=== PATIENT | male | born 1970 | race Caucasian/White ===

== ENCOUNTER 2016-11-18 20:07 | Emergency (ER) | payer BC ==
[2016-11-18 20:30] VITALS: BP 126/73
--- NOTE | 2016-11-18 20:46 | UC ---
Throat Pain/Nasal Raffy HPI - HPI Summary HPI Summary: complaint of nasal congestion and cough that started approx7 days ago sore throat fever and chills sinus pressure that is getting worse- pain in face and forehead cough with purulent sputum body feels achy sometimes taking some dayquil without much relief - History of Current Complaint Chief Complaint: UCGeneralIllness Stated Complaint: COUGH/HEADACHE Time Seen by Provider: 11/18/16 20:38 Hx Obtained From: Patient - Allergies/Home Medications Allergies/Adverse Reactions: Allergies Allergy/AdvReac Type Severity Reaction Status Date / Time No Known Allergies Allergy Verified 11/18/16 20:29 Home Medications: Home Medications Benzonatate CAP* [Tessalon CAP*] 100 mg PO TID 11/18/16 [History Confirmed 11/18] PMH/Surg Hx/FS Hx/Imm Hx Previously Healthy: Yes - Surgical History Surgical History: Yes Surgery Procedure, Year, and Place: T&A, 2007, [place] - Family History Known Family History: Positive: Cardiac Disease, Hypertension Negative: Diabetes - Social History Occupation: Employed Full-time Lives: With Family Alcohol Use: Occasionally Substance Use Type: None Smoking Status (MU): Never Smoked Tobacco - Immunization History Most Recent Influenza Vaccination: not this season Review of Systems Constitutional: Fever, Chills Skin: Negative Eyes: Negative ENT: Sore Throat, Nasal Discharge Respiratory: Cough Cardiovascular: Negative Gastrointestinal: Negative Genitourinary: Negative Motor: Negative Neurovascular: Negative Musculoskeletal: Negative Neurological: Headache Psychological: Negative All Other Systems Reviewed And Are Negative: Yes Physical Exam Triage Information Reviewed: Yes Appearance: No Pain Distress, Well-Nourished Vital Signs: Initial Vital Signs Temp 99.6 F 11/18/16 20:25 Pulse 79 11/18/16 20:25 Resp 16 11/18/16 20:25 BP 126/73 11/18/16 20:25 Pulse Ox 99 11/18/16 20:25 Vital Signs Reviewed: Yes Eyes: Positive: Conjunctiva Clear ENT: Positive: Pharyngeal erythema, Nasal congestion, Nasal drainage, TM bulging , Other: - frontal and maxillary sinus tenderness. Negative: Tonsillar swelling , Tonsillar exudate Neck: Positive: No Lymphadenopathy Respiratory: Positive: Lungs clear, Normal breath sounds, No respiratory distress, No accessory muscle use Cardiovascular: Positive: RRR, No Murmur Abdomen Description: Positive: Nontender, Soft Bowel Sounds: Positive: Present Musculoskeletal: Positive: No Edema Neurological: Positive: Alert Psychological Exam: Normal Skin Exam: Normal Throat Pain/Nasal Course/Dx - Differential Dx/Diagnosis Differential Diagnosis/HQI/PQRI: Pharyngitis, Sinusitis, URI Provider Diagnoses: sinusitis Discharge - Discharge Plan Condition: Stable Disposition: HOME Prescriptions: Amoxicillin/Clavulanate TAB* [Augmentin TAB 875*] 875 mg PO BID #20 tab Benzonatate CAP* [Tessalon CAP*] 100 mg PO TID PRN #30 cap PRN Reason: Cough Patient Education Materials: Sinusitis (ED) Referrals: Todd Morrissey DO [Primary Care Provider] - Additional Instructions: SINUSITIS What is Sinusitis? Sinusitis is inflammation or infection of the lining of the sinuses behind the bones in your cheeks or forehead. Sinusitis may occur following a common cold, flu, or other infection; allergies; a tooth infection that spreads to the sinuses; swimming in contaminated water; pressure changes in airplanes at high altitudes; violent sneezing or nose blowing or smoking or breathing other peoples smoke. Symptoms Might Include: Nasal Congestion Sneezing Watery eyes, eye irritation, or eye itching Headaches Pressure in the cheeks Wheezing Trouble smelling Sore throat and coughing may occur Treatment Recommendations: Take medicines as prescribed until completely gone. Drink plenty of fluids. Use saline nose spray to thin the mucous and help the sinuses drain. Use a vaporizer or humidifier. Apply warm compresses to the face or forehead several times a day for 10 to 20 minutes. Call Your Doctor or Return Here IF: Your pain increases during treatment. You develop a high temperature. You develop unusual swelling around the eyes. You have difficulty with your vision. You develop a severe headache, earache, or toothache. You develop increased fever or fever that does not respond to medication such as Tylenol?. You have difficulty breathing or catching your breath. You begin to have any other new symptoms that worry you.
[2016-11-18] MEDS ORDERED: Amoxicillin/Clavulanate TAB* 875 MG PO ONE ×2 (20:47→21:02)
[2016-11-18] MEDS ORDERED: Benzonatate CAP* 100 MG PO ONE (20:48)
== END 2016-11-18 21:10 | disposition home or self-care (01) ==
LOC: UCCORT 20:07
DX: J32.9 Chronic sinusitis, unspecified (principal)
CPT/HCPCS: 99212; A9270-GY; G0463

== ENCOUNTER 2018-02-15 10:57 | Emergency (ER) | payer BC, OTHER ==
[2018-02-15 11:24] VITALS: BP 125/78
--- NOTE | 2018-02-15 12:07 | UC ---
Dizzy HPI HPI Summary: Pt c/o dizziness, dull headache X 7 days. Pt also reports that he has lost 60+ pounds over last 6 weeks, unintentional. Pt states that [facility] girlfriend ended relationship in mid December, began losing weight, insomnia, and now c/o dizziness and "foggy brain". - History Of Current Complaint Chief Complaint: UCGeneralIllness Stated Complaint: DIZZY *1WEEK Time Seen by Provider: 02/15/18 11:46 Hx Obtained From: Patient Onset/Duration: Sudden Onset, Lasting Weeks, Still Present, Worse Since - last 6 days. Timing: Constant Severity Initially: Mild Severity Currently: Mild Pain Intensity: 3 Character: Dizzy Aggravating Factor(s): Nothing Alleviating Factor(s): Nothing Associated Signs And Symptoms: Positive: Decreased Oral Intake, Change In Diet - Risk Factors Cardiac Risk Factors: Negative CVA Risk Factor: Negative - Allergies/Home Medications Allergies/Adverse Reactions: Allergies Allergy/AdvReac Type Severity Reaction Status Date / Time No Known Allergies Allergy Verified 02/15/18 11:15 Home Medications: Home Medications NK [No Home Medications Reported] 02/15/18 [History Confirmed 02/15/18] PMH/Surg Hx/FS Hx/Imm Hx Previously Healthy: Yes - Surgical History Surgical History: Yes Surgery Procedure, Year, and Place: T&A, 2007, [place] - Family History Known Family History: Positive: Cardiac Disease, Hypertension Negative: Diabetes - Social History Occupation: Employed Full-time Lives: With Family Alcohol Use: Occasionally Substance Use Type: None Smoking Status (MU): Never Smoked Tobacco Have You Smoked in the Last Year: No - Immunization History Most Recent Influenza Vaccination: not this season Review of Systems Constitutional: Negative Skin: Negative Eyes: Other - change in vision, ENT: Negative Respiratory: Negative Cardiovascular: Negative Gastrointestinal: Negative Genitourinary: Negative Motor: Negative Neurovascular: Negative Musculoskeletal: Negative Neurological: Negative Psychological: Negative Is Patient Immunocompromised?: No All Other Systems Reviewed And Are Negative: Yes Physical Exam Triage Information Reviewed: Yes Appearance: Well-Appearing Vital Signs: Initial Vital Signs Temp 98 F 02/15/18 11:11 Pulse 64 02/15/18 11:11 Resp 16 02/15/18 11:11 BP 125/78 02/15/18 11:11 Pulse Ox 99 02/15/18 11:11 Vital Signs Reviewed: Yes Eye Exam: Normal ENT Exam: Other ENT: Positive: TM bulging - bilateral Dental Exam: Normal Neck exam: Normal Respiratory Exam: Normal Cardiovascular Exam: Normal Abdominal Exam: Normal Musculoskeletal Exam: Normal Neurological Exam: Normal Psychological Exam: Normal Skin Exam: Normal Dizzy Course/Dx - Differential Dx/Diagnosis Differential Diagnosis/HQI/PQRI: Other Provider Diagnoses: dizziness. Mood disorder. unintentional weight loss Discharge - Sign-Out/Discharge Documenting (check all that apply): Discharge/Admit/Transfer - Discharge Plan Condition: Stable Disposition: HOME Patient Education Materials: Mood Disorders (ED), Dizziness (ED) Referrals: No Primary Care Phys,NOPCP [Primary Care Provider] - [facility] [place] [facility] [Outside] - As Soon As Possible Additional Instructions: Please establish care with a PCP as soon as possible. If your symptoms worsen please seek care at the closest emergency room. - Billing Disposition and Condition Condition: STABLE Disposition: HOME
[2018-02-15 18:34] LABS: ABS Basophils 0 10^3/ul (0-0.2); ABS Eosinophils 0.1 10^3/ul (0-0.6); ABS Lymphocytes 1.6 10^3/ul (1.0-4.8); ABS Monocytes 0.9 10^3/ul (0-0.8); ABS Neutrophils 7.2 10^3/ul (1.5-7.7); ABS Nucleated RBC 0 10^3/ul; Eosinophil % 0.9 % (0-6); Hematocrit 47 % (42-52); Hemoglobin 15.8 g/dl (14.0-18.0); Mean Corpuscular HGB Conc 34 g/dl (31-36); Mean Corpuscular Hemoglobin 30 pg (27-31); Mean Corpuscular Volume 89 fL (80-94); Mean Platelet Volume 8.2 um3 (7.4-10.4); Nucleated Red Blood Cells % 0; Platelet Count 180 10^3/ul (150-450); Red Blood Count 5.27 10^6/ul (4.0-5.4); Red Cell Distribution Width 13 % (10.5-15); White Blood Count 9.7 10^3/ul (3.5-10.8)
[2018-02-15 18:45] LABS: EGFR Non-African American 112.9 (>60)
== END 2018-02-15 12:16 | disposition home or self-care (01) ==
LOC: UCCORT 10:57
DX: R42 Dizziness and giddiness (principal); F39 Unspecified mood [affective] disorder; R63.4 Abnormal weight loss
CPT/HCPCS: 36415; 80053; 84439; 84443; 84481; 85025; 99212; G0463

== ENCOUNTER 2018-09-06 19:30 | Emergency (ER) | payer BC, MEDICAID, OTHER ==
[2018-09-06 20:25] VITALS: BP 147/96
[2018-09-06] MEDS ORDERED: Albuterol 2.5 MG/3 ML NEB.SOL* (0.083%) INH ONE (20:59)
--- NOTE | 2018-09-06 20:59 | UC ---
UC General HPI - HPI Summary HPI Summary: 5 DAY HX OF INCREASING COUGH, CONGESTION, WHEEZING AND SOME NASH. NO CP, COPD OR ASTHMA. NO FEVER. HX SAME, NEVER IMPROVES UNTIL TX. - History of Current Complaint Chief Complaint: UCGeneralIllness Stated Complaint: COUGH, CHEST CONGESTION Time Seen by Provider: 09/06/18 20:48 Hx Obtained From: Patient Onset/Duration: Gradual Onset Timing: Constant Pain Intensity: 0 Associated Signs & Symptoms: Positive: Cough, SOB, Wheezing. Negative: Chest Pain, Fever - Allergy/Home Medications Allergies/Adverse Reactions: Allergies Allergy/AdvReac Type Severity Reaction Status Date / Time No Known Allergies Allergy Verified 02/15/18 11:15 Home Medications: Home Medications guaiFENesin [Cough Syrup] 10 ml PO ONCE 09/06/18 [History Confirmed 09/06/18] PMH/Surg Hx/FS Hx/Imm Hx Previously Healthy: Yes - Surgical History Surgical History: Yes Surgery Procedure, Year, and Place: T&A, 2007, [place] - Family History Known Family History: Positive: Cardiac Disease, Hypertension Negative: Diabetes - Social History Alcohol Use: Occasionally Substance Use Type: None Smoking Status (MU): Never Smoked Tobacco Have You Smoked in the Last Year: No - Immunization History Most Recent Influenza Vaccination: not this season Vaccination Up to Date: Yes Review of Systems All Other Systems Reviewed And Are Negative: Yes Constitutional: Positive: Negative Skin: Positive: Negative Eyes: Positive: Negative ENT: Positive: Negative Respiratory: Positive: Shortness Of Breath, Cough Cardiovascular: Negative: Palpitations, Chest Pain Gastrointestinal: Positive: Negative Genitourinary: Positive: Negative Motor: Positive: Negative Neurovascular: Positive: Negative Musculoskeletal: Positive: Negative Neurological: Positive: Negative Psychological: Positive: Negative Physical Exam Triage Information Reviewed: Yes Appearance: Well-Appearing Vital Signs: Initial Vital Signs Temp 97.9 F 09/06/18 20:20 Pulse 75 09/06/18 20:20 Resp 20 09/06/18 20:20 BP 147/96 09/06/18 20:20 Pulse Ox 96 09/06/18 20:20 Vital Signs Reviewed: Yes Eyes: Positive: Conjunctiva Clear ENT: Positive: Pharynx normal, TMs normal. Negative: Nasal congestion, Nasal drainage Neck: Positive: Supple, Nontender, No Lymphadenopathy Respiratory: Positive: No respiratory distress, Decreased breath sounds, Other: - HARSH DEEP COUGH Cardiovascular: Positive: RRR, No Murmur Abdomen Description: Positive: Nontender, No Organomegaly, Soft Bowel Sounds: Positive: Present Musculoskeletal: Positive: ROM Intact Neurological: Positive: Alert Psychological: Positive: Age Appropriate Behavior Skin Exam: Normal Re-Evaluation - Re-Evaluation First Eval Re-Evaluation Time: 21:25 Change: Improved - BETTER AERTION Course/Dx - Course Course Of Treatment: BP ELEVATED, NO HX HTN. I THINK ILLNESS RELATED. PT WILL HAVE IT RECHECKED ON F/U. - Diagnoses Provider Diagnosis: Cough, Bronchospasm, acute Discharge - Sign-Out/Discharge Documenting (check all that apply): Patient Departure All imaging exams completed and their final reports reviewed: No Studies - Discharge Plan Condition: Stable Disposition: HOME Prescriptions: Albuterol HFA INHALER* [Ventolin HFA Inhaler*] 2 puff INH Q6H #1 mdi Azithromycin TAB* [Zithromax TAB (Z-MARIIA) 250 mg #6 tabs] 2 tab PO .TODAY, THEN 1 DAILY #1 mariia predniSONE TAB* [Deltasone 20 MG TAB*] 40 mg PO DAILY 5 Days #10 tab Patient Education Materials: Acute Cough (ED), Bronchospasm (ED) Referrals: Todd Morrissey DO [Medical Doctor] - 7 Days - Billing Disposition and Condition Condition: STABLE Disposition: Home
[2018-09-06] MEDS ORDERED: predniSONE TAB* 20 MG PO ONE (21:32)
== END 2018-09-06 21:41 | disposition home or self-care (01) ==
LOC: UCCORT 19:30
DX: J98.01 Acute bronchospasm (principal)
CPT/HCPCS: 99212; G0463; J7512